=== PATIENT | male | born 1960 | race Caucasian/White ===

== ENCOUNTER 2020-07-29 04:22 | Day surgery (SDC) | payer OTHER | END 2020-07-29 11:52 | disposition home or self-care (01) | LOC: JASU-ENDO 04:22 | PROC: 0DJD8ZZ Inspection of Lower Intestinal Tract, Via Natural or Artificial Opening Endoscopic (ICD-10-PCS; principal; 2020-07-29 10:00) ==

== ENCOUNTER 2023-10-17 15:18 | Emergency (ER) | payer OTHER ==
[2023-10-17 15:24] VITALS: BP 120/70; PULSE 82; RESP 18; TEMP 98.6; BMI 31.0
[2023-10-17] MEDS ORDERED: KETOROLAC TROMETHAMINE 30 MG/1 ML VIAL ONE (16:49)
[2023-10-17] MEDS: KETOROLAC TROMETHAMINE 30 MG/1 ML VIAL IM ONE (16:55)
== END 2023-10-17 17:24 | disposition home or self-care (01) ==
LOC: JER 15:18
PROC: 3E0233Z Introduction of Anti-inflammatory into Muscle, Percutaneous Approach (ICD-10-PCS; principal; 2023-10-17)
DX: M79.18 Myalgia, other site (principal)
CPT/HCPCS: 99284-25